=== PATIENT | male | born 1965 | race Caucasian/White ===

== ENCOUNTER → 2021-04-26 | Day surgery (SDC) | payer OTHER ==
[~2021-04-26] VITALS: Ht 190.5 cm; Wt 111.6 kg
[~2021-04-26] MED LIST: ATENOLOL25 MG PO; BENICAR40 MG PO; ENOXAPARIN120 MG/0.8 SC; GABAPENTIN600 MG PO; LEVOTHYROXINE50 MCG PO; PRAVASTATIN SOD40 MG PO; PROTONIX40 M1 PO; WARFARIN SODIUM5 MG PO
[2021-04-26 11:55] LABS: HCT 50.8 % (42.0-52.0); HGB 16.9 g/dl (13.2-18.0); MCH 30.3 pg (25.0-31.0); MCHC 33.3 g/dL (32.0-36.0); MPV 11.2 fL (6.0-9.5); RBC 5.58 M/uL (4.70-6.00); RDW 13.2 % (11.5-14.0); WBC 7.7 K/uL (4.0-10.5)
[2021-04-26 12:13] LABS: INR 1.16 (0.9-1.2); PROTHROMBIN TIME 14.2 SECONDS (11.8-13.4)
[2021-04-26 12:18] LABS: ALBUMIN 4.4 g/dL (3.4-5.0); BILIRUBIN - TOTAL 1.1 mg/dL (0.2-1.0); BUN/CREAT RATIO (CALC) 16.5 RATIO; CREATININE 1.03 mg/dL (0.67-1.17); GLOBULIN (CALCULATION) 3.3 g/dL; POTASSIUM 3.8 mmol/L (3.5-5.1); TOTAL PROTEIN 7.7 g/dL (6.4-8.2)
== END | disposition home or self-care (01) ==
LOC: FAS 08:58
PROVIDERS: Surgery
DX: K92.1 Melena (principal); D12.6 Benign neoplasm of colon, unspecified; K57.30 Diverticulosis of large intestine without perforation or abscess without bleeding; Z79.01 Long term (current) use of anticoagulants; Z87.891 Personal history of nicotine dependence
CPT/HCPCS: 36415; 80053; 85610; J0690; J2704; J7120